=== PATIENT | female | born 1960 | race Caucasian/White ===

== ENCOUNTER 2022-06-28 10:11 | Outpatient (CLI) | payer BC | END 2022-06-28 10:12 | disposition home or self-care (01) | LOC: RAD 10:11 | PROVIDERS: ATTEND Family Medicine | DX: M19.91 Primary osteoarthritis, unspecified site (principal) ==

== ENCOUNTER 2023-11-02 21:11 | Emergency (ER) | payer BC ==
[2023-11-02] MEDS ORDERED: Boostrix 0.5 ML (Tdap) VIAL (>/=7 yrs of age) ONE (22:08)
[2023-11-02] MEDS ORDERED: HYDROcodone/Acetaminophen 5/325 mg Tablet ONE (22:08)
[2023-11-02] MEDS ORDERED: Morphine 4 MG/ML VIAL ONE (23:09)
[2023-11-02] MEDS ORDERED: Ondansetron PF 4 MG/2 ML Vial ONE (23:09)
[2023-11-02 23:28] LABS: #Basophils 0.12 10x3/uL (0.0-0.2); %Basophils 1.3 % (0.0-1.0); %Eosinophils 2.8 % (0.0-10.0); %Lymphocytes 29.7 % (21.0-51.0); %Monocytes 7.9 % (0.0-10.0); Hematocrit 42.7 % (36.0-47.0); Hemoglobin 14.6 g/dL (12.0-16.0); Mean Corpuscular HGB CONC 34.2 g/dL (32.0-36.0); Mean Corpuscular Volume 90.7 fL (78.0-98.0); Platelet Count 298 10x3/uL (130-400); Red Blood Cell (RBC) Count 4.71 mill/uL (4.20-5.40)
[2023-11-02 23:32] LABS: INR-International Normal Ratio 0.9; PTT 30.4 sec (22.9-36.1); Prothrombin Time 12.3 sec (12.0-14.7)
[2023-11-02 23:51] LABS: ALT (SGPT) 17 U/L (8-55); AST (SGOT) 17 U/L (5-34); Albumin 3.7 g/dL (3.4-4.8); Alkaline Phosphatase 81 U/L (40-110); Anion Gap 16 mmol/L (10-20); BUN (Urea Nitrogen) 14 mg/dL (9.8-20.1); Bilirubin, Total 0.6 mg/dL (0.2-1.2); Calc. Creatinine Clearance 0 mL/min (70-130); Calcium 9.6 mg/dL (7.8-10.44); Carbon Dioxide 21 mmol/L (23-31); Chloride 107 mmol/L (98-107); Estimated GFR 58; Globulin 3.4 g/dL (2.4-3.5); Glucose 95 mg/dL (80-115); Potassium 3.7 mmol/L (3.5-5.1); Protein, Total 7.1 g/dL (5.8-8.1); Sodium 140 mmol/L (136-145)
[2023-11-03] MEDS ORDERED: Morphine 4 MG/ML VIAL ONE ×2 (01:16→03:17)
[2023-11-03 09:54] LABS: Hematocrit 41.3 % (36.0-47.0); Hemoglobin 13.8 g/dL (12.0-16.0); Mean Corpuscular HGB CONC 33.4 g/dL (32.0-36.0); Mean Corpuscular Hemoglobin 30.8 pg (27.0-31.0); Mean Corpuscular Volume 92.2 fL (78.0-98.0); Mean Platelet Volume 10.5 fL (7.4-10.4); Platelet Count 261 10x3/uL (130-400); RBC Distribution Width 13.1 % (11.5-14.5); Red Blood Cell (RBC) Count 4.48 mill/uL (4.20-5.40)
[2023-11-03 09:59] LABS: ALT (SGPT) 17 U/L (8-55); AST (SGOT) 16 U/L (5-34); Albumin 3.5 g/dL (3.4-4.8); Alkaline Phosphatase 76 U/L (40-110); Anion Gap 15 mmol/L (10-20); BUN (Urea Nitrogen) 12 mg/dL (9.8-20.1); Bilirubin, Total 0.7 mg/dL (0.2-1.2); Calc. Creatinine Clearance 0 mL/min (70-130); Calcium 9.4 mg/dL (7.8-10.44); Carbon Dioxide 20 mmol/L (23-31); Chloride 109 mmol/L (98-107); Estimated GFR 68; Globulin 3.1 g/dL (2.4-3.5); Glucose 110 mg/dL (80-115); Potassium 3.9 mmol/L (3.5-5.1); Protein, Total 6.6 g/dL (5.8-8.1); Sodium 140 mmol/L (136-145)
[2023-11-03 11:28] LABS: INR-International Normal Ratio 0.9; Prothrombin Time 12.4 sec (12.0-14.7)
[2023-11-03 11:29] LABS: PTT 31.8 sec (22.9-36.1)
== END 2023-11-03 05:38 | disposition home or self-care (01) ==
LOC: ERS 21:11
DX: T63.091A Toxic effect of venom of other snake, accidental (unintentional), initial encounter (principal); Z23 Encounter for immunization
CPT/HCPCS: 80053; 85025; 85384; 85610; 85730; 90471; 90715; 93005; 96374; 96375; 96376; J2270; J2405